=== PATIENT | female | born 1995 | race Caucasian/White ===

== ENCOUNTER 2016-10-17 08:30 | Emergency (ER) | payer SELFPAY ==
[~2016-10-17] VITALS: Ht 170.2 cm; Wt 77.1 kg
[~2016-10-17 08:30] MED LIST: CEPH-38 PO; CYCL10TA9 PO; FAMO-119 PO; FEXO-14 PO; IBUP800T26 PO; LORA10TA7 PO; NF-OLOP5ML OP; PRD20T PO
[2016-10-17] MEDS ORDERED: NS IV 1000 ML 1,000 ML IV ONE (11:48)
[2016-10-17 11:56] LABS: BASOPHILS % (AUTO) 0 % (0-10); EOSINOPHILS # (AUTO) 0.1 10^3/uL (0.0-0.3); EOSINOPHILS % (AUTO) 1 % (0-10); LYMPHOCYTES # (AUTO) 1.4 X 10^3 (1.0-4.0); LYMPHOCYTES % (AUTO) 22 % (12-44); MEAN CORPUSCULAR HEMOGLOBIN 30 PG (25-34); MEAN CORPUSCULAR HGB CONC 34 G/DL (32-36); MEAN CORPUSCULAR VOLUME 87 FL (80-99); MEAN PLATELET VOLUME 11.8 FL (7.4-10.4); MONOCYTES # (AUTO) 0.8 X 10^3 (0.0-1.0); MONOCYTES % (AUTO) 12 % (0-12); NEUTROPHILS # (AUTO) 4.1 X 10^3 (1.8-7.8); NEUTROPHILS % (AUTO) 65 % (42-75); PLATELET COUNT 184 10^3/uL (130-400); RED BLOOD COUNT 4.72 10^6/uL (4.35-5.85); RED CELL DISTRIBUTION WIDTH 12.7 % (10.0-14.5); WHITE BLOOD COUNT 6.4 10^3/uL (4.3-11.0)
[2016-10-17] MEDS ORDERED: ONDANSETRON 4 MG/2 ML (SDV) Z0FRAN IVP ONE (12:00)
[2016-10-17] MEDS ORDERED: KETOROLAC 30 MG/ML VIAL IVP ONE (12:00)
[2016-10-17 12:08] LABS: ALANINE AMINOTRANSFERASE 19 U/L (0-55); ALBUMIN 4.4 G/DL (3.2-4.5); ANION GAP 9 MMOL/L (5-14); ASPARTATE AMINO TRANSFERASE 22 U/L (5-34); BILIRUBIN,TOTAL 0.6 MG/DL (0.1-1.0); BLOOD UREA NITROGEN 8 MG/DL (7-18); BUN/CREATININE RATIO 11; CALCIUM 9.5 MG/DL (8.5-10.1); CARBON DIOXIDE 21 MMOL/L (21-32); CHLORIDE 111 MMOL/L (98-107); CREATININE SERUM 0.75 MG/DL (0.60-1.30); GFR ESTIMATED > 60; GLUCOSE 101 MG/DL (70-105); MAGNESIUM 2.1 MG/DL (1.8-2.4); SODIUM 141 MMOL/L (135-145); TOTAL PROTEIN 7.2 G/DL (6.4-8.2); hs C REACTIVE PROTEIN 0.78 MG/DL (0.00-0.50)
[2016-10-17] MEDS ORDERED: DOXY100T2 PO (13:09)
[2016-10-17] MEDS ORDERED: ONDA4TAB8 PO (13:09)
[2016-10-17] MEDS ORDERED: CYCL10TA9 PO (13:09)
--- NOTE | 2016-10-17 13:09 | ED Headache ---
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 RATES PAIN 01/02 Nursing Sepsis Screen: No Definite Risk Source: patient Exam Limitations: no limitations History of Present Illness Time seen by provider: 11:22 Initial Comments This 21-year-old young lady presents to the emergency room with complaint of migraine headache with neck and back stiffness. No fever. She has pain and numbness that radiates into her left extremities. Symptoms started around 05: 00. She has been having problems with migraines with similar paresthesias since being diagnosed with [place] spotted fever over a year ago. CT scan done last November was negative. She has concerns about being insufficiently treated for [place] spotted fever as she only completed 3 days of doxycycline after the diagnosis. She did not tolerate doxycycline due to generalized illness and vomiting. She was changed to Cipro at that time. She has not taken any medication for this headache today. She has associated nausea without vomiting. She denies as she is on the Depo-Provera injection. Allergies and Home Medications Allergies Coded Allergies: No Known Drug Allergies (Unverified , 12/15/14) Home Medications Cyclobenzaprine HCl 10 Mg Tablet, 10 MG PO HS PRN for SPASMS, #10 Prescribed by: BOBBY COULTER on 10/17/16 1309 Doxycycline Hyclate 100 Mg Tablet, 100 MG PO BID, #28 Prescribed by: BOBBY COULTER on 10/17/16 1309 Ondansetron 4 Mg Tab.rapdis, 4 MG PO Q4H, #10 Ref 1 Prescribed by: BOBBY COULTER on 10/17/16 1309 Constitutional: no symptoms reported Eyes: No Symptoms Reported Ears, Nose, Mouth, Throat: no symptoms reported Respiratory: no symptoms reported Cardiovascular: no symptoms reported Gastrointestinal: see HPI Genitourinary: no symptoms reported Musculoskeletal: no symptoms reported Skin: no symptoms reported Psychiatric/Neurological: See HPI Past Javrfnc-Jphfvz-Twymon Hx Patient Social History Alcohol Use: Denies Use Recreational Drug Use: No Smoking Status: Never a Smoker Recent Foreign Travel: No Contact w/Someone Who Travel: No Recent Infectious Disease Expo: No Recent Hopitalizations: No Immunizations Up To Date Tetanus Booster (TDap): Unknown Seasonal Allergies Seasonal Allergies: Yes Surgeries HX Surgeries: No Respiratory Hx Respiratory Disorders: No (mono w/this admit 12/15/14) Cardiovascular Hx Cardiac Disorders: No Neurological Hx Neurological Disorders: No Reproductive System : No (DEPO) Hx Reproductive Disorders: No Sexually Transmitted Disease: No HIV/AIDS: No Genitourinary Hx Genitourinary Disorders: Yes Genitourinary Disorders: UTI-Chronic Gastrointestinal Hx Gastrointestinal Disorders: No Musculoskeletal Hx Musculoskeletal Disorders: No Endocrine Hx Endocrine Disorders: No HEENT HX ENT Disorders: No Cancer Hx Cancer: No Psychosocial Hx Psychiatric Problems: No Integumentary HX Skin/Integumentary Disorder: Yes ([place] spotted fever, ehrlichiosis ) Blood Transfusions Hx Blood Disorders: No Adverse Reaction to a Blood Tr: No Family Medical History Significant Family History: No Pertinent Family Hx Family Medial History: Cataracts materal grandfather, Onset:Unknown Dementia maternal grandmother, Onset:Unknown Diabetes mellitus materal grandfather, Onset:Unknown Gastroenteritis 19 MOTHER, Onset:Unknown Hypertension maternal grandmother, Onset:Unknown Myocardial infarction materal grandfather, Onset:Unknown Physical Exam Vital Signs Vital Sign - Last 12Hours 10/17/16 08:40 Temp 98.7 Pulse 105 Resp 16 B/P (MAP) 130/74 Pulse Ox 97 Capillary Refill : Less Than 3 Seconds General Appearance: WD/WN, no apparent distress HEENT: PERRL/EOMI, normal ENT inspection, pharynx normal Neck: normal inspection Cardiovascular: regular rate, rhythm, no edema, no murmur Respiratory: lungs clear, normal breath sounds, no respiratory distress, no accessory muscle use Gastrointestinal: non tender, soft Extremities: non-tender, normal inspection Psychiatric: alert, oriented x 3 Crainal Nerves: normal hearing, normal speech, PERRL Motor/Sensory: no motor deficit, no sensory deficit Skin: normal color, warm/dry Progress/Results/Core Measures Results/Orders Lab Results Laboratory Tests Test 10/17/16 09:55 Range/Units White Blood Count 6.4 4.3-11.0 10^3/uL Red Blood Count 4.72 4.35-5.85 10^6/uL Hemoglobin 14.0 11.5-16.0 G/DL Hematocrit 41 35-52 % Mean Corpuscular Volume 87 80-99 FL Mean Corpuscular Hemoglobin 30 25-34 PG Mean Corpuscular Hemoglobin Concent 34 32-36 G/DL Red Cell Distribution Width 12.7 10.0-14.5 % Platelet Count 184 130-400 10^3/uL Mean Platelet Volume 11.8 H 7.4-10.4 FL Neutrophils (%) (Auto) 65 42-75 % Lymphocytes (%) (Auto) 22 12-44 % Monocytes (%) (Auto) 12 0-12 % Eosinophils (%) (Auto) 1 0-10 % Basophils (%) (Auto) 0 0-10 % Neutrophils # (Auto) 4.1 1.8-7.8 X 10^3 Lymphocytes # (Auto) 1.4 1.0-4.0 X 10^3 Monocytes # (Auto) 0.8 0.0-1.0 X 10^3 Eosinophils # (Auto) 0.1 0.0-0.3 10^3/uL Basophils # (Auto) 0.0 0.0-0.1 10^3/uL Sodium Level 141 135-145 MMOL/L Potassium Level 4.0 3.6-5.0 MMOL/L Chloride Level 111 H 98-107 MMOL/L Carbon Dioxide Level 21 21-32 MMOL/L Anion Gap 9 5-14 MMOL/L Blood Urea Nitrogen 8 7-18 MG/DL Creatinine 0.75 0.60-1.30 MG/DL Estimat Glomerular Filtration Rate > 60 BUN/Creatinine Ratio 11 Glucose Level 101 70-105 MG/DL Calcium Level 9.5 8.5-10.1 MG/DL Magnesium Level 2.1 1.8-2.4 MG/DL Total Bilirubin 0.6 0.1-1.0 MG/DL Aspartate Amino Transf (AST/SGOT) 22 5-34 U/L Alanine Aminotransferase (ALT/SGPT) 19 0-55 U/L Alkaline Phosphatase 78 40-136 U/L C-Reactive Protein High Sensitivity 0.78 H 0.00-0.50 MG/DL Total Protein 7.2 6.4-8.2 G/DL Albumin 4.4 3.2-4.5 G/DL My Orders Orders - BOBBY MCKINNEY MD Cbc With Automated Diff (10/17/16 11:48) Comprehensive Metabolic Panel (10/17/16 11:48) Hs C Reactive Protein (10/17/16 11:48) Magnesium (10/17/16 11:48) Saline Lock/Iv-Start (10/17/16 11:48) Ns Iv 1000 Ml (Sodium Chloride 0.9%) (10/17/16 11:48) Ondansetron Injection (Zofran Injectio (10/17/16 12:00) Ketorolac Injection (Toradol Injection) (10/17/16 12:00) Medications Given in ED Vital Signs/I&O Vital Sign - Last 12Hours 10/17/16 10/17/16 08:40 20:35 Temp 98.7 98.0 Pulse 105 71 Resp 16 18 B/P (MAP) 130/74 Pulse Ox 97 99 Blood Pressure Mean: 92 Progress Note : Progress Note Patient received Toradol, IV fluids, and Zofran with good improvement. She was offered a course of doxycycline as she believes her [place] spotted fever was insufficiently treated previously. Departure Impression Impression: Primary Impression: Migraine Qualified Codes: G43.909 - Migraine, unspecified, not intractable, without status migrainosus Additional Impression: History of [place] spotted fever Disposition: HOME, SELF-CARE Condition: Improved Departure-Patient Inst. Decision time for Depature: 13:00 Referrals: [facility] (PCP/Family) Primary Care Physician Patient Instructions: Migraine Headache (DC) Add. Discharge Instructions: Complete your antibiotics as prescribed if tolerated. Please be aware doxycycline may cause sun sensitivity. Follow-up with your primary care provider soon as possible. Discuss possible causes and prevention of migraines. Consider having your vitamin D level checked. You may use Zofran (ondansetron) as prescribed for nausea. Return to care if symptoms worsen. All discharge instructions reviewed with patient and/or family. Voiced understanding. Scripts Cyclobenzaprine HCl (Cyclobenzaprine HCl) 10 Mg Tablet 10 MG PO HS Y for SPASMS, #10 TAB Prov: BOBBY MCKINNEY MD 10/17/16 Ondansetron (Zofran Odt) 4 Mg Tab.rapdis 4 MG PO Q4H, #10 TAB 1 Refill Prov: BOBBY MCKINNEY MD 10/17/16 Doxycycline Hyclate (Doxycycline Hyclate) 100 Mg Tablet 100 MG PO BID, #28 TAB Prov: BOBBY MCKINNEY MD 10/17/16 Copy Copies To 1: JUAN GOODWIN MD, JOSHUA T MD Oct 17, 2016 13:09
[2016-10-17 20:35] VITALS: BP 125/63
== END 2016-10-17 13:47 | disposition home or self-care (01) ==
LOC: EDUNIT# 08:30 → ER 08:32
DX: G43.909 Migraine, unspecified, not intractable, without status migrainosus (principal); Z86.19 Personal history of other infectious and parasitic diseases
CPT/HCPCS: 36415; 80053; 83735; 85025; 86141; 96374; 96375

== ENCOUNTER 2019-08-18 08:24 | Emergency (ER) | payer OTHER ==
[~2019-08-18] VITALS: Ht 167.7 cm; Wt 70.3 kg
[~2019-08-18 08:24] MED LIST changes: +DOXY100T2 PO; +ONDA4TAB8 PO
--- NOTE | 2019-08-18 08:55 | ED Upper Extremity ---
General Chief Complaint: Laceration Stated Complaint: L PINKY FINGER INJ Source: patient (KVNG CHOUDHARY MEDICAL STUDENT) History of Present Illness Date Seen by Provider: Aug 18, 2019 Time Seen by Provider: 08:48 Initial Comments Pt is a 24 yo F who comes to the ED after slicing the pad of her L fifth digit while cutting bread this morning at work at the [employer] at [employer] at 06:30. She endorses some bleeding, but this stopped with pressure. She complains of only mild discomfort. There was no amputation, the skin flap is still intact. She is unsure of the date of her last tetanus vaccination. Onset: this morning Severity: mild Pain/Injury Location: left 5th finger Method of Injury: other (accident with knife while cutting) Modifying Factors: Improves With Movement (KVNG CHOUDHARY MEDICAL STUDENT) Onset: this morning Severity: mild Pain/Injury Location: left 5th finger Method of Injury: incised Modifying Factors: Improves With Rest (CYNTHIA LOPEZ MD) Allergies and Home Medications Allergies Coded Allergies: No Known Drug Allergies (Unverified , 12/15/14) Home Medications Cyclobenzaprine HCl 10 Mg Tablet, 10 MG PO HS PRN for SPASMS Prescribed by: BOBBY COULTER on 10/17/16 1309 Doxycycline Hyclate 100 Mg Tablet, 100 MG PO BID Prescribed by: BOBBY COULTER on 10/17/16 1309 Ondansetron 4 Mg Tab.rapdis, 4 MG PO Q4H Prescribed by: BOBBY COULTER on 10/17/16 1309 Patient Home Medication List Home Medication List Reviewed: Yes (KVNG CHOUDHARY) Home Medication List Reviewed: Yes (CYNTHIA LOPEZ MD) Review of Systems Constitutional: no symptoms reported EENTM: no symptoms reported Respiratory: no symptoms reported Cardiovascular: no symptoms reported Gastrointestinal: no symptoms reported Genitourinary: no symptoms reported Musculoskeletal: no symptoms reported Skin: lesions (skin flap on L fifth digit), other (no active bleeding) Psychiatric/Neurological: No Symptoms Reported (KVNG CHOUDHARY STUDENT) Respiratory: no symptoms reported Cardiovascular: no symptoms reported Skin: see HPI, lesions (skin flap on L fifth digit), other (no active bleeding) (CYNTHIA LOPEZ MD) Past Hzzxspz-Tropzx-Mluafo Hx Past Med/Social Hx: Reviewed Nursing Past Med/Soc Hx (CYNTHIA LOPEZ MD) Patient Social History Alcohol Use: Denies Use Recreational Drug Use: No 2nd Hand Smoke Exposure: No Recent Foreign Travel: No Contact w/Someone Who Travel: No Recent Hopitalizations: No (KVNG CHOUDHARY MEDICAL STUDENT) Immunizations Up To Date Tetanus Booster (TDap): Unknown (KVNG CHOUDHARY MEDICAL STUDENT) Seasonal Allergies Seasonal Allergies: Yes (KVNG CHOUDHARY STUDENT) Past Medical History Surgeries: No Respiratory: No (hx mono) Cardiac: No Neurological: No Reproductive Disorders: No Sexually Transmitted Disease: No HIV/AIDS: No UTI-Chronic Gastrointestinal: No Musculoskeletal: No Endocrine: No Cancer: No Psychosocial: No Integumentary: Yes ([place] spotted fever, ehrlichiosis) Blood Disorders: No Adverse Reaction/Blood Tranf: No (KVNG CHOUDHARY) Family Medical History Reviewed Nursing Family Hx (CYNTHIA LOPEZ MD) Cataracts materal grandfather, Onset:Unknown Dementia maternal grandmother, Onset:Unknown Diabetes mellitus materal grandfather, Onset:Unknown Gastroenteritis 19 MOTHER, Onset:Unknown Hypertension maternal grandmother, Onset:Unknown Myocardial infarction materal grandfather, Onset:Unknown No Pertinent Family Hx (KVNG CHOUDHARY) Physical Exam Vital Signs Vital Signs - First Documented 08/18/19 08:29 Temp 36.7 Pulse 94 Resp 15 B/P (MAP) 136/84 (101) Pulse Ox 98 O2 Delivery Room Air (CYNTHIA LOPEZ MD) Vital Signs Capillary Refill : Less Than 3 Seconds (KVNG CHOUDHARY MEDICAL STUDENT) Height, Weight, BMI Height: 5'7.00" Weight: 170lbs. 0.0oz. [id number]; 25.06 BMI Method:Stated General Appearance: WD/WN, no apparent distress Cardiovascular: regular rate, rhythm, no edema, no murmur Respiratory: chest non-tender, lungs clear, normal breath sounds, no respiratory distress Wrist: Yes normal inspection, Yes non-tender, Yes no evidence of injury Hand: laceration (approximately 1x1 cm superficial skin flap of L fifth digit. Not bleeding, no swelling. Clean wound.) Neurologic/Tendon: normal sensation, normal motor functions (KVNG CHOUDHARY MEDICAL STUDENT) General Appearance: WD/WN, no apparent distress Cardiovascular: regular rate, rhythm, no murmur Respiratory: lungs clear, normal breath sounds Hand: Left, laceration (approximately 1x1 cm superficial skin flap of L fifth digit. Not bleeding, no swelling. Clean wound.) Neurologic/Tendon: normal sensation, normal motor functions Neurologic/Psychiatric: alert, oriented x 3 (CYNTHIA LOPEZ MD) Procedures/Interventions Other Wound Location Left fifth finger pad distal Wound Length (cm): 1 Wound's Depth, Shape: flap Wound Explored: contaminated Irrigated w/ Saline (ccs): 50 Betadine Prep?: No Other Closure Supply: Wound Adhesive Number of Sutures: 0 Progress Wound cleaned with Betasept and saline. Dried. Covered with skin glue. Tolerated procedure well with no complications. (CYNTHIA LOPEZ MD) Progress/Results/Core Measures Results/Orders Vital Signs/I&O 08/18/19 08:29 Temp 36.7 Pulse 94 Resp 15 B/P (MAP) 136/84 (101) Pulse Ox 98 O2 Delivery Room Air (CYNTHIA LOPEZ MD) Progress Progress Note : Progress Note I have seen and evaluated the patient and agree with above except as indicated. I have directed the plan of care. Patient is here small flap laceration to the distal portion of the pad of the left fifth finger from slicing. It is superficial and bleeding is controlled. Denies other concerns. Unsure of when her last tetanus shot was but would be less than 10 years. Wound soaked and cleaned. Covered with skin glue. Discharged home with return precautions. Patient verbalize understanding instructions and agreement with plan. (CYNTHIA LOPEZ MD) Departure Impression Primary Impression: Finger laceration Qualified Codes: S61.317A - Laceration without foreign body of left little finger with damage to nail, initial encounter Disposition: 01 HOME, SELF-CARE Condition: Improved Departure-Patient Inst. Decision time for Depature: 09:40 (CYNTHIA LOPEZ MD) Referrals: NO,LOCAL PHYSICIAN (PCP/Family) Primary Care Physician Patient Instructions: Laceration Repair With Glue (DC) Add. Discharge Instructions: All discharge instructions reviewed with patient and/or family. Voiced understanding. Keep wound place until it falls off on its own over the next 4-7 days. You may gently wash hands but do not soak for any prolonged period of time as this will prematurely cause skin glue to follow-up. Do not apply lotions, creams or ointments to the area of concern as this will prematurely remove skin glue. Return for worse pain, swelling, red streaks up the hand or other concerns as needed. You may return to work today but protects the wound from soiling or getting wet. KVNG CHOUDHARY MEDICAL STUDENT Aug 18, 2019 08:55 CYNTHIA LOPEZ MD Aug 18, 2019 09:41
[2019-08-18 09:50] VITALS: BP 136/84
== END 2019-08-18 09:56 | disposition home or self-care (01) ==
LOC: EDUNIT# 08:24 → ER 08:27
DX: S61.317A Laceration without foreign body of left little finger with damage to nail, initial encounter (principal); Z82.49 Family history of ischemic heart disease and other diseases of the circulatory system; W26.0XXA Contact with knife, initial encounter; Y92.59 Other trade areas as the place of occurrence of the external cause; Y99.0 Civilian activity done for income or pay
CPT/HCPCS: 99282